=== PATIENT | female | born 1990 ===

== ENCOUNTER 2021-09-03 14:07 | Inpatient (IN) | payer SELFPAY ==
[2021-09-03] MEDS ORDERED: METHYLERGONOVINE MALEATE 0.2 MG/ML VIAL IM PRN (19:00)
[2021-09-03] MEDS ORDERED: ePHEDrine SULFATE 50 MG/1 ML INJ IV PRN (19:00)
[2021-09-03] MEDS ORDERED: BUTORPHANOL 2 MG/1 ML INJ IV PRN ×2 (19:00)
[2021-09-03] MEDS ORDERED: OXYTOCIN DRIP 30 UNITS/500 ML BAG IV SCH ×2 (19:00)
[2021-09-03] MEDS ORDERED: TERBUTALINE 1 MG/1 ML INJ SUB-Q PRN (19:00)
[2021-09-03] MEDS ORDERED: MINERAL OIL 30 ML ORAL LIQD PO PRN (19:00)
[2021-09-03] MEDS ORDERED: OXYTOCIN 10 UNIT/1 ML INJ IM PRN (19:00)
[2021-09-03] MEDS ORDERED: ACETAMINOPHEN 325 MG TAB PO PRN (19:00)
[2021-09-03] MEDS ORDERED: miSOPROStol 200 MCG TAB PR PRN (19:00)
[2021-09-03] MEDS ORDERED: LIDOCAINE (2%) 20 MG/1 ML VIAL 20 ML MDV INFILTRATI ONE (19:00)
[2021-09-03] MEDS ORDERED: LACTATED RINGERS 1,000 ML IV SCH (19:00)
[2021-09-03] MEDS ORDERED: CARBOPROST TROMETHAMINE 250 MCG/1 ML INJ IM PRN (19:00)
[2021-09-03] MEDS ORDERED: DINOPROSTONE 10 MG VAG SUPP VG ONE (19:00)
[2021-09-03] MEDS ORDERED: LOPERAMIDE 2 MG CAP PO PRN (19:00)
[2021-09-03 20:01] LABS: Hematocrit 35.4 % (30.3-42.9); Hemoglobin 11.8 gm/dl (10.1-14.3); Mean Corpuscular HGB Conc 33 % (30-34); Mean Corpuscular Volume 85 fl (79-97); Platelet Count 218 K/mm3 (140-440); Red Blood Count 4.15 M/mm3 (3.65-5.03); Red Cell Distribution Width 18.6 % (13.2-15.2)
--- NOTE | 2021-09-03 22:32 | History and Physical Report ---
History of Present Illness Date of admission: 09/03/21 19:21 Chief complaint: C/O decreased movement History of present illness: 31 YO at 40.4 weeks presents to Labor and delivery with C/O decreased movement. Pt with care at [facility]. BPP 8/8 but BRETT 3.9. Admit for induction of labor for oligohydramnious. Past History Past Medical History: no pertinent history Past Surgical History: no surgical history Family/Genetic History: none Social history: no significant social history - Obstetrical History Expected Date of Delivery: 08/30/21 Actual Gestation: 40 Week(s) 4 Day(s) : 3 Para: 2 Number of Living Children: 2 Medications and Allergies Allergies Allergy/AdvReac Type Severity Reaction Status Date / Time No Known Allergies Allergy Verified 09/03/21 14:54 Active Meds: Active Medications Acetaminophen (Acetaminophen 325 Mg Tab) 650 mg PO Q4H PRN PRN Reason: Pain, Mild (1-3) Butorphanol Tartrate (Butorphanol 2 Mg/1 Ml Inj) 1 mg IV Q2H PRN PRN Reason: Pain, Moderate(4-6) LABOR PAIN Butorphanol Tartrate (Butorphanol 2 Mg/1 Ml Inj) 2 mg IV Q2H PRN PRN Reason: Pain , Severe (7-10) Carboprost Tromethamine (Carboprost Tromethamine 250 Mcg/1 Ml Inj) 250 mcg IM ONCE PRN PRN Reason: Uterine Bleeding Ephedrine Sulfate (Ephedrine Sulfate 50 Mg/1 Ml Inj) 10 mg IV Q2M PRN PRN Reason: Hypotension Oxytocin/Sodium Chloride (Pitocin/Ns 30 Unit/500ml) 30 units in 500 mls @ 2 mls/hr IV TITR [place]; Protocol Lactated Ringer's (Lactated Ringers) 1,000 mls @ 125 mls/hr IV DIRECT [place] Oxytocin/Sodium Chloride (Pitocin/Ns 30 Unit/500ml) 30 units in 500 mls @ 40 mls/hr IV TITR [place]; Protocol Loperamide HCl (Loperamide 2 Mg Cap) 2 mg PO ONCE PRN PRN Reason: give with Hemabate Methylergonovine Maleate (Methylergonovine Maleate 0.2 Mg/Ml Vial) 0.2 mg IM ONCE PRN PRN Reason: Uterine Bleeding Mineral Oil (Mineral Oil 30 Ml Oral Liqd) 30 ml PO QHS PRN PRN Reason: Constipation Misoprostol (Misoprostol 200 Mcg Tab) 800 mcg MD ONCE PRN PRN Reason: Uterine Bleeding Oxytocin (Oxytocin 10 Unit/1 Ml Inj) 10 unit IM ONCE PRN PRN Reason: Uterine Bleeding Terbutaline Sulfate (Terbutaline 1 Mg/1 Ml Inj) 0.25 mg SUB-Q ONCE PRN PRN Reason: Hyperstimulation/Hypertonicity Review of Systems All systems: negative - Vital Signs Vital signs: Vital Signs Pulse BP Pulse Ox 81 127/82 98 09/03/21 14:26 09/03/21 14:26 09/03/21 14:26 Temp Pulse Resp BP Pulse Ox 98.2 F 83 127/82 97 09/03/21 15:26 09/03/21 16:06 09/03/21 14:26 09/03/21 16:06 Results Result Diagrams: 09/03/21 19:47 Abnormal lab results 09/03/21 Range/Units 19:47 RDW 18.6 H (13.2-15.2) % All other labs normal. Assessment and Plan A: 40.4 weeks - oligohydramnious GBS - neg P: Admit for induction Expect
[2021-09-04] MEDS ORDERED: DINOPROSTONE 10 MG VAG SUPP VG ONE (04:00)
--- NOTE | 2021-09-04 07:00 | Event Note ---
Date: 09/04/21 S: Feeling ok O: VE cervadil pushed bck into the vault, irregular contractions, CAT I tracing A: 40.5 weeks oligohydramnious P: Cervadil to be removed at 3:30 pm
--- NOTE | 2021-09-04 15:55 | Event Note ---
Date: 09/04/21 S: Feeling some contractions O: VE /-1, CAT I tracing A: Induction of labor P: Pitocin Expect
[2021-09-04] MEDS ORDERED: ONDANSETRON 4 MG/2 ML INJ ONE (20:18)
--- NOTE | 2021-09-04 21:53 | Procedure Note ---
OB Delivery Note - Vaginal Delivery presentation: vertex Delivery position: OA Intrapartum events: other(please specify) (oligohydramnios) Delivery induction: cervidil Delivery augmentation: pitocin Delivery monitor: external FHT, external uterine Route of delivery: Delivery placenta: spontaneous Delivery cord: nuchal cord (x1 loose), 3 umbilical vessels Episiotomy: none Delivery laceration: none Anesthesia: intravenous Delivery comments: of viable male @ 2126 on 09/04/21 over intact perineum. Placenta, 3VC intact. QBL 100. APGARs 8/9. - Infant A at 1 minute: 8 at 5 minutes: 9 Infant Gender: Male
[2021-09-04] MEDS ORDERED: LANOLIN/ZINC/DIMETHICONE (LANSINOH) 7 GM TP PRN (21:55)
[2021-09-04] MEDS ORDERED: WITCH HAZEL/ GLYCERIN PAD TP PRN (21:55)
[2021-09-04] MEDS ORDERED: ACETAMINOPHEN 325 MG TAB PO PRN (21:55)
[2021-09-04] MEDS ORDERED: oxyCODONE /ACETAMINOPHEN 5-325MG TAB PO PRN (21:55)
[2021-09-04] MEDS ORDERED: ONDANSETRON 4 MG/2 ML INJ IV PRN (21:55)
[2021-09-04] MEDS: IBUPROFEN 800 MG TAB PO SCH (22:16)
[2021-09-05] MEDS: IBUPROFEN 800 MG TAB PO SCH ×2 (06:26→16:25)
--- NOTE | 2021-09-05 07:51 | Progress Note ---
Assessment and Plan A: PPD # 1 -stable P: Discharge home in am Discharge instructions given Subjective - Subjective Date of service: 09/05/21 Principal diagnosis: Interval history: 31 YO at 40.4 weeks presents to Labor and delivery with C/O decreased movement. Pt with care at [facility]. BPP 8/8 but BRETT 3.9. Admit for induction of labor for oligohydramnious. Patient reports: appetite normal : doing well Objective - Vital Signs Latest vital signs: Vital Signs Temp Pulse Resp BP Pulse Ox Pulse Ox 09/05/21 06:23 98 09/05/21 05:06 98.5 F 82 20 91/56 96 09/05/21 03:35 98 09/05/21 01:25 97 09/04/21 23:15 75 121/65 09/04/21 23:06 99 H 130/81 09/04/21 22:05 77 119/62 09/04/21 21:51 83 119/56 09/04/21 21:47 82 98 09/04/21 21:42 83 97 09/04/21 21:37 72 99 09/04/21 21:35 81 122/68 09/04/21 21:32 74 97 09/04/21 21:27 98 H 97 09/04/21 21:22 82 90 09/04/21 21:17 82 98 09/04/21 21:12 76 98 09/04/21 21:10 68 141/96 09/04/21 21:07 71 99 09/04/21 21:02 64 98 09/04/21 20:57 73 99 09/04/21 20:52 68 97 09/04/21 20:49 70 94 09/04/21 20:47 67 95 09/04/21 20:42 72 98 09/04/21 20:39 69 121/73 09/04/21 20:37 73 96 09/04/21 20:32 66 96 09/04/21 20:27 63 96 09/04/21 20:22 74 98 09/04/21 20:03 70 97 09/04/21 19:58 68 97 09/04/21 19:53 67 97 09/04/21 19:48 72 96 09/04/21 19:43 93 H 96 09/04/21 19:39 66 118/72 09/04/21 19:38 66 97 09/04/21 19:33 76 95 09/04/21 19:28 98 H 93 09/04/21 19:27 84 87 09/04/21 19:23 92 H 96 09/04/21 19:18 90 96 09/04/21 19:15 97.9 F 16 97 09/04/21 19:13 96 H 95 09/04/21 19:09 77 117/78 09/04/21 19:08 95 H 98 09/04/21 19:03 79 98 09/04/21 18:58 100 H 98 09/04/21 18:53 87 98 09/04/21 18:48 84 98 09/04/21 18:43 86 98 09/04/21 18:40 88 130/85 09/04/21 18:38 96 H 99 09/04/21 18:33 77 98 09/04/21 18:28 83 99 09/04/21 18:23 79 98 09/04/21 18:18 80 98 09/04/21 18:13 93 H 98 09/04/21 18:10 86 117/83 09/04/21 18:09 85 135/95 09/04/21 18:08 92 H 98 09/04/21 18:03 94 H 98 09/04/21 17:58 94 H 98 09/04/21 17:53 95 H 98 09/04/21 17:48 78 97 09/04/21 17:43 103 H 98 09/04/21 17:38 95 H 98 09/04/21 17:36 116 H 94 09/04/21 17:33 83 98 09/04/21 15:17 104 H 98 09/04/21 15:12 89 98 09/04/21 15:07 86 97 09/04/21 15:02 96 H 97 09/04/21 14:57 98 H 98 09/04/21 14:52 83 98 09/04/21 14:47 98.4 F 82 98 09/04/21 14:45 82 127/83 09/04/21 14:42 81 98 09/04/21 14:32 91 H 98 09/04/21 14:27 88 97 09/04/21 14:22 95 H 98 09/04/21 14:17 87 97 09/04/21 14:12 87 98 09/04/21 14:07 86 97 09/04/21 14:02 85 97 09/04/21 13:57 80 96 09/04/21 13:52 78 97 09/04/21 13:47 85 97 09/04/21 13:42 93 H 98 09/04/21 13:37 88 98 09/04/21 13:32 85 96 09/04/21 13:27 87 96 09/04/21 13:22 90 97 09/04/21 13:17 82 97 09/04/21 13:12 90 97 09/04/21 13:07 103 H 98 09/04/21 13:02 104 H 97 09/04/21 12:57 92 H 97 09/04/21 12:52 83 97 09/04/21 12:47 81 97 09/04/21 12:42 80 97 09/04/21 12:37 91 H 97 09/04/21 12:32 85 98 09/04/21 12:27 80 97 09/04/21 12:22 92 H 98 09/04/21 12:17 77 97 09/04/21 12:12 77 97 09/04/21 12:07 87 98 09/04/21 12:02 91 H 97 09/04/21 11:57 112 H 96 09/04/21 11:52 88 98 09/04/21 11:47 81 97 09/04/21 11:42 80 98 09/04/21 11:37 79 97 09/04/21 11:32 86 98 09/04/21 11:27 86 97 09/04/21 11:22 86 98 09/04/21 11:17 83 97 09/04/21 11:12 85 97 09/04/21 11:07 96 H 97 09/04/21 11:02 86 97 09/04/21 10:57 84 97 09/04/21 10:52 77 97 09/04/21 10:47 78 97 09/04/21 10:42 84 97 09/04/21 10:37 66 96 09/04/21 10:32 73 96 09/04/21 10:28 93 H 90 09/04/21 10:27 74 96 07 10:22 66 96 09/04/21 10:17 71 96 09/04/21 10:12 68 95 09/04/21 10:07 68 97 09/04/21 10:02 67 97 09/04/21 09:57 64 97 09/04/21 09:52 69 97 09/04/21 09:48 72 97 09/04/21 09:42 67 97 09/04/21 09:37 71 97 09/04/21 09:32 66 96 09/04/21 09:27 73 96 09/04/21 09:22 71 97 09/04/21 09:18 74 97 09/04/21 09:12 88 98 09/04/21 09:07 82 98 09/04/21 09:02 104 H 98 09/04/21 08:57 105 H 96 09/04/21 08:52 68 97 09/04/21 08:47 70 97 09/04/21 08:42 76 97 09/04/21 08:39 97.9 F 18 98 09/04/21 08:38 77 98 09/04/21 08:33 81 96 09/04/21 08:30 82 122/95 09/04/21 08:29 98 09/04/21 08:28 91 H 97 09/04/21 08:23 62 96 09/04/21 08:18 71 97 09/04/21 08:13 68 97 09/04/21 08:08 70 96 09/04/21 08:03 74 97 09/04/21 07:58 71 97 09/04/21 07:57 74 94 09/04/21 07:53 70 98 09/04/21 07:51 75 93 Intake and Output 09/04/21 09/05/21 09/05/21 22:59 06:59 14:59 Intake Total 4.6 240 Output Total 1000 Balance 4.6 -760 Intake: IV 4.6 PITOCin/NS 30 UNIT/500ML 4.6 30 units In 500 ml @ 2 mls/hr IV TITR [place] Rx#: [id number] Oral 240 Output: Urine 1000 Void 1000 Other: Total, Intake Amount 240 Total, Output Amount 600 # Voids Void 1 Estimated Blood Loss 100 - Exam Breasts: Present: deferred Cardiovascular: Present: Regular rate Lungs: Present: Clear to auscultation Abdomen: Present: soft Vulva: both: normal Extremities: Present: normal Deep Tendon Reflex Grade: Normal +2
--- NOTE | 2021-09-05 07:54 | Discharge Summary ---
Providers - Providers Date of Admission: 09/03/21 19:21 Date of discharge: 09/06/21 Attending physician: CALISTA LEDESMA Primary care physician: CALISTA LEDESMA Hospitalization Reason for admission: induction of labor Delivery: Episiotomy: none Discharge diagnosis: IUP at term delivered baby: male Condition at discharge: Good Disposition: 01 HOME / SELF CARE / HOMELESS Plan - Provider Discharge Summary Activity: routine, no sex for 6 weeks, no strenuous exercise Diet: routine Instructions: routine Additional instructions: [] Smoking cessation referral if applicable(refer to patient education folder for contact #) [] Refer to [facility] Call your doctor immediately for: * Fever > 100.5 * Heavy vaginal bleeding ( >1 pad per hour) * Severe persistent headache * Shortness of breath * Reddened, hot, painful area to leg or breast * Drainage or odor from incision. * Keep incision clean and dry at all times and follow doctor's instructions regarding bathing/showering - Follow up plan Follow up: CALISTA LEDESMA MD [Primary Care Provider] - 6 Weeks
[2021-09-05 10:08] LABS: Hematocrit 32.8 % (30.3-42.9); Hemoglobin 11.3 gm/dl (10.1-14.3)
--- NOTE | 2021-09-05 20:07 | Ultrasound Report ---
ULTRASOUND OBSTETRIC LIMITED ULTRASOUND BIOPHYSICAL PROFILE INDICATION / CLINICAL INFORMATION: [facility]; decreased FM; BPP BRETT. COMPARISON: None available. FINDINGS: BREATHING MOVEMENT = 2 GROSS BODY MOVEMENT = 2 TONE = 2 QUALITATIVE AMNIOTIC FLUID VOLUME = 2 TOTAL BIOPHYSICAL SCORE = 8/8 AMNIOTIC FLUID INDEX (cm) = 3.9 PRESENTATION: Cephalic. HEART RATE (beats per minute): 171 ADDITIONAL FINDINGS: None. IMPRESSION: 1. Biophysical Score = 8/8 2. Oligohydramnios Signer Name: Gregory King MD Signed: 09/05/2021 8:02 PM Workstation Name: [id number]
[2021-09-06] MEDS: IBUPROFEN 800 MG TAB PO SCH ×2 (00:09→06:08)
[2021-09-06 13:01] VITALS: BP 108/60
== END 2021-09-06 15:40 | disposition home or self-care (01) | DRG 807 ==
LOC: TRG 14:07 → APU 14:08 → TRG 19:19 → APU 19:21 → LD 09-04 03:04 → OB 09-05 01:09
PROVIDERS: ADMIT Obstetrics & Gynecology; ATTEND Obstetrics & Gynecology
PROC: 10E0XZZ Delivery of Products of Conception, External Approach (ICD-10-PCS; principal; 2021-09-04)
PROC: 10907ZC Drainage of Amniotic Fluid, Therapeutic from Products of Conception, Via Natural or Artificial Opening (ICD-10-PCS; 2021-09-04)
DX: O41.03X0 Oligohydramnios, third trimester, not applicable or unspecified (principal); Z37.0 Single live birth; Z3A.40 40 weeks gestation of pregnancy; Z20.822 Contact with and (suspected) exposure to COVID-19; O69.81X0 Labor and delivery complicated by cord around neck, without compression, not applicable or unspecified
CPT/HCPCS: 36415; 59200; 76815; 76819; 85014; 85018; 85027; 86850; 86900; 86901; 96360; 96365; 96374; G0378; J0595; J2405; J2590; J7120; U0003